=== PATIENT | female | born 1935 | race Caucasian/White ===

== ENCOUNTER 2020-02-05 10:29 | Emergency (ER) | payer OTHER ==
[2020-02-05 10:37] VITALS: BMI 26.4
--- NOTE | 2020-02-05 11:22 | PDOC ---
History of Present Illness - General Chief Complaint: Respiratory Stated Complaint: COUGH Time Seen by Provider: 02/05/20 10:35 History Source: Patient Exam Limitations: No Limitations - History of Present Illness Initial Comments: 84 yo F hx HTN, anemia, UTI presents with recent cough, chills, muscle aches. Symptoms started on 01/22, started to improve over time, then the cough returned in the past 3 days. Now accompanied with blood-tinged sputum. Denies SOB, TODD. Sent by Dr. El. Past History - Past Medical History Allergies/Adverse Reactions: Allergies Allergy/AdvReac Type Severity Reaction Status Date / Time No Known Allergies Allergy Verified 02/05/20 10:33 Home Medications: Ambulatory Orders Losartan Potassium 100 mg PO DAILY #0 tablet 07/18/12 Aspirin [Aspirin EC] 81 mg PO DAILY 02/05/20 Anemia: Yes Asthma: No Cancer: No COPD: No Diabetes: No HTN: Yes - Psycho Social/Smoking Cessation Hx Smoking Status: No Smoking History: Never smoked Number of Cigarettes Smoked Daily: 0 Hx Alcohol Use: Yes (RARE) Drug/Substance Use Hx: No Substance Use Type: None Hx Substance Use Treatment: No Review of Systems - Review of Systems Able to Perform ROS?: Yes Comments:: GENERAL/CONSTITUTIONAL: No fever or chills. No weakness. HEAD, EYES, EARS, NOSE AND THROAT: No change in vision. No ear pain or discharge. No sore throat. CARDIOVASCULAR: No chest pain or shortness of breath. RESPIRATORY: +Cough. No wheezing. +Hemoptysis. GASTROINTESTINAL: No nausea, vomiting, diarrhea or constipation. GENITOURINARY: No dysuria, frequency, or change in urination. MUSCULOSKELETAL: No joint or muscle swelling or pain. No neck or back pain. SKIN: No rash. NEUROLOGIC: No headache, vertigo, loss of consciousness, or change in strength/sensation. ENDOCRINE: No increased thirst. No abnormal weight change. HEMATOLOGIC/LYMPHATIC: No anemia, easy bleeding, or history of blood clots. ALLERGIC/IMMUNOLOGIC: No hives or skin allergy. *Physical Exam - Vital Signs Last Vital Signs Temp Pulse Resp BP Pulse Ox 0/0 L 02/05/20 10:30 - Physical Exam GENERAL: Awake, alert, and fully oriented, in no acute distress HEAD: No signs of trauma EYES: PERRLA, EOMI, sclera anicteric, conjunctiva clear ENT: Auricles normal inspection, hearing grossly normal, nares patent, oropharynx clear without exudates. Moist mucosa NECK: Normal ROM, supple, no lymphadenopathy, JVD, or masses LUNGS: Breath sounds equal, clear to auscultation bilaterally. No wheezes, and no crackles HEART: Regular rate and rhythm, normal S1 and S2, no murmurs, rubs or gallops ABDOMEN: Soft, nontender, normoactive bowel sounds. No guarding, no rebound. No masses EXTREMITIES: Normal range of motion, no edema. No clubbing or cyanosis. No cords, erythema, or tenderness NEUROLOGICAL: Cranial nerves II through XII grossly intact. Normal speech, normal gait. Motor and sensation intact SKIN: Warm, dry, normal turgor, no rashes or lesions noted. Heart Score/ECG Review - ECG Impressions Comment:: EKG read 11:50- NSR 99 bpm, no acute ST/T changes Medical Decision Making - Medical Decision Making 02/05/20 12:16 UA shows signs of UTI. Patient has prior culture showing bactrim resistance, but nothing recent. She has a prescription for levaquin from Dr. El, will fill it today. Culture pending from today's visit. CXR shows small density ESTEFANI, discussed with patient and daughter. If any symptoms of SOB, TODD, or cp, return to the ED immediately. Self-quarantine at home for 14 days. Discharge - Discharge Information Problems reviewed: Yes Clinical Impression/Diagnosis: Suspected COVID-19 virus infection UTI (urinary tract infection) Qualifiers: Urinary tract infection type: site unspecified Hematuria presence: without hematuria Qualified Code(s): N39.0 - Urinary tract infection, site not specified Condition: Stable Disposition: HOME - Admission No - Follow up/Referral Referrals: Ricky El MD [Primary Care Provider] - - Patient Discharge Instructions Patient Printed Discharge Instructions: DI for Urinary Tract Infection (UTI), [facility]-Coronavirus Instructions, [facility] COVID-19 Isolation Protocol - Post Discharge Activity
[2020-02-05 11:26] VITALS: BP 152/58; PULSE 103; TEMP 99.3
--- NOTE | 2020-02-06 18:13 | EKG ---
Test Reason : Blood Pressure : / mmHG Vent. Rate : 099 BPM Atrial Rate : 099 BPM P-R Int : 156 ms QRS Dur : 086 ms QT Int : 332 ms P-R-T Axes : 042 024 049 degrees QTc Int : 426 ms NORMAL SINUS RHYTHM NORMAL ECG WHEN COMPARED WITH ECG OF 15-JUL-2012 15:01, NO SIGNIFICANT CHANGE WAS FOUND Confirmed by JASVIR HARMON MD ([id number]) on 02/06/2020 6:13:39 PM Referred By: Marleny PARIS Confirmed By:JASVIR HARMON MD
== END 2020-02-05 12:26 | disposition home or self-care (01) ==
LOC: FER 10:29
DX: N39.0 Urinary tract infection, site not specified (principal)
CPT/HCPCS: 71045-TC-FY; 81003; 81015; 87086; 87186; 93005; 99285-25

== ENCOUNTER 2021-05-18 05:18 | Day surgery (SDC) | payer OTHER, MEDICARE ==
[2021-05-16 16:11] VITALS: BMI 25.7
[2021-05-18 08:24] VITALS: TEMP 97.1
[2021-05-18 09:14] VITALS: BP 121/55; PULSE 80
== END 2021-05-18 09:10 | disposition home or self-care (01) ==
LOC: JASU-ENDO 05:18
PROVIDERS: ATTEND Internal Medicine Gastroenterology
PROC: 0DB78ZX Excision of Stomach, Pylorus, Via Natural or Artificial Opening Endoscopic, Diagnostic (ICD-10-PCS; 2021-05-18)
PROC: 0DB48ZX Excision of Esophagogastric Junction, Via Natural or Artificial Opening Endoscopic, Diagnostic (ICD-10-PCS; principal; 2021-05-18 08:00)
DX: K22.10 Ulcer of esophagus without bleeding (principal); K21.00 Gastro-esophageal reflux disease with esophagitis, without bleeding; K29.50 Unspecified chronic gastritis without bleeding; K44.9 Diaphragmatic hernia without obstruction or gangrene; I10 Essential (primary) hypertension
CPT/HCPCS: 88305-TC; 88312-TC; 88342-TC